=== PATIENT | female | born 1985 | race Caucasian/White ===

== ENCOUNTER 2017-06-18 14:56 | Emergency (ER) | payer SELFPAY, OTHER | END 2017-06-18 17:44 | disposition home or self-care (01) | LOC: FTE 14:56 | DX: T19.2XXA Foreign body in vulva and vagina, initial encounter (principal); F17.210 Nicotine dependence, cigarettes, uncomplicated; X58.XXXA Exposure to other specified factors, initial encounter; Y92.9 Unspecified place or not applicable | CPT/HCPCS: 99284 ==